=== PATIENT | male | born 1955 | race Caucasian/White ===

== ENCOUNTER 2017-06-23 05:57 | Emergency (ER) | payer OTHER ==
[~2017-06-23] VITALS: Ht 144.8 cm; Wt 78.0 kg
[2017-06-23 06:00] VITALS: Ht 144.8 cm; Wt 78.0 kg
[2017-06-23] MEDS: HYDROCODONE/APAP (5/325) TAB PO STA ×2 (07:29→07:32)
--- NOTE | 2017-06-23 07:37 | RADRPT ---
PROCEDURE: CT Brain without contrast. CLINICAL INDICATION: Headache TECHNIQUE: CT scan of the brain was performed on a multidetector high-resolution CT scan. Axial im aging was obtained of the brain without contrast administration. Coronal and sagittal reformatted i mages were obtained from the axial source images. Standard CT scan of the head without contrast prot ocols were performed. The total exam CTDI equals 45.01 mGy and the total exam DLP equals 720.23 mGy-cm. One or more of the following dose reduction techniques were used: - Automated exposure control. - Adjustment of the mA and/or kV according to patient size. Use of iterative reconstruction technique. COMPARISON: None. FINDINGS: The ventricular system and peripheral CSF spaces are proportionately prominent consistent with mild generalized cerebral volume loss. Negative for intracranial masses hemorrhages or midline shift. Mil d periventricular deep white matter changes that is nonspecific and consistent with chronic microvas cular ischemic disease. There are small low densities involving the lateral right and left internal capsule consistent with remote lacunar infarcts. The bones of the calvarium are intact. Minimal clinical psychiatrist porfirio bilateral maxillary and ethmoid sinus disease. The mastoids are unremarkable. There is atheroscl erotic heart plaque involving the cavernous carotid arteries and distal left vertebral artery. The g ray-white matter junction is unremarkable. There are small low densities involving the right and lef t avilez radiata consistent with remote lacunar infarcts. IMPRESSION: 1. No evidence of intracranial masses hemorrhages or midline shift. 2. Remote lacunar infarcts involving the right and left internal capsule. 3. Mild generalized cerebral volume loss and nonspecific chronic microvascular ischemic disease. RPTAT:AAJJ Physician Binh Date Time Electronically viewed and signed by Physician Binh on 06/23/2017 07:36 BM/
[2017-06-23] MEDS ORDERED: TRAM-40 PO (07:44)
[2017-06-23 07:53] VITALS: BP 128/68; PULSE 81; RESP 18
--- NOTE | 2017-06-23 09:55 | ERD ---
ER Documentation Chief Complaint Date/Time DATE: 06/23/17 TIME: 09:52 Chief Complaint c/o pulsating headache x 5 days. No n/v. HPI Is a 61-year-old male with a history of diabetes type 2 presenting to the emergency department complaining of left parietal pulsating moderate to severe headache for the past 5 days. Patient denies any photophobia, nausea vomiting. He denies any neuro deficits. He denies taking any medications for this ROS All systems reviewed and are negative except as per history of present illness. Medications Home Meds Active Scripts Tramadol Hcl* (Ultram*) 50 Mg Tablet, 50 MG PO Q6H Y for PAIN, #10 TAB Prov:DELIO STONE PA-C 06/23/17 Allergies Allergies: Coded Allergies: No Known Allergy (Unverified , 06/23/17) PMhx/Soc Medical and Surgical Hx: pt denies Medical Hx, pt denies Surgical Hx Hx Alcohol Use: No Hx Substance Use: No Hx Tobacco Use: No Smoking Status: Never smoker Physical Exam Vitals Vital Signs Date Time Temp Pulse Resp B/P Pulse Ox O2 Delivery O2 Flow Rate FiO2 06/23/17 07:53 81 18 128/68 99 Room Air 06/23/17 06:00 98.3 93 18 166/75 99 Physical Exam GENERAL: well-developed/well-nourished, in no apparent distress, non-toxic appearing HENT: NC/AT, bilateral tympanic membrane is normal with good cone of light, nares patent, oropharynx clear without exudates Tender in the temporal region EYES: Conjunctiva normal, PERRLA, EOMI, no nystagmus noted NECK: Supple, no lymphadenopathy PULM: CTA bilaterally, no rales, rhonchi, or wheezing heard CV: Normal S1S2, RRR, good capillary refill GI: Soft, non-distended, normal bowel sounds, non-tender BACK: No midline tenderness, no masses, No CVAT EXT: No clubbing, cyanosis, or edema NEURO: Alert and orientated to person, place, and time. CN II-IIX intact. Gait and coordination were normal. 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 My differential diagnoses include tension, migraine, and cluster headache, overuse medication headache, subarachnoid hemorrhage, meningitis, stroke. Pain relief was given in the ED with some improvement. Neurology exam was normal, he had stable vital signs. Patient was given [place] in the ED, pain stabilized in the ED. CT of the head was done, radiologist stated 1. No evidence of intracranial masses hemorrhages or midline shift. 2. Remote lacunar infarcts involving the right and left internal capsule. 3. Mild generalized cerebral volume loss and nonspecific chronic microvascular ischemic disease. Patient is hemodynamically stable and neurovascularly intact to be discharged home. Prescriptions Tylenol were given. Discussed to follow up with a primary care physician in the next couple days. Return to the ER if condition worsens or not improving as expected. Patient agreed and understood this plan. Departure Diagnosis: Primary Impression: Headache Condition: Stable Patient Instructions: Self-Care for Headaches, Headache, Unspecified Referrals: [facility] Usted se ornelas hecho un examen mdico de control que le indica que no est en digna condicin que requiera tratamiento urgente en el Departamento de Emergencia. Un estudio ms profundo y el tratamiento de duarte condicin pueden esperar sin ningn riesgo hasta que usted sea atendida/o en el consultorio de duarte mdico o digna cl shimon. Es responsabilidad suya arreglar digna josiah para el seguimiento del stacy. MANEJO DE CONDICIONES NO URGENTES EN EL FUTURO 1) Si usted tiene un mdico de atencin primaria: Usted debera llamar a duarte mdico de atencin primaria antes de venir al departamento de emergencia. Despus de las horas de consultorio, duarte doctor o duarte asociado/a est disponible por telfono. El mdico o enfermero de lucinda en el servicio telefnico puede asesorarle por anu medio para atender el problema, o stacy contrario se puede programar digna josiah. 2) Si usted no tiene un mdico de atencin primaria: Llame al mdico o clnica de referencia que aparece abajo anita las horas de consultorio para hacer digna josiah para que le vean. CLINICAS: [place] [id number] [phone] [facility] [phone] [facility] [phone] [place] [phone] [facility]. [place] [id number] [phone] [facility] [phone] [address] Additional Instructions: Visite a duarte mdico maana para un EXAMEN.Regrese a estas instalaciones si no se mejora estela esperbamos o estela le dijimos. [place] toda la medicina oneil y estela se le indic. DELIO STONE PA-C Jun 23, 2017 09:55
== END 2017-06-23 07:53 | disposition home or self-care (01) ==
LOC: FTE 05:57
DX: R51 Headache (principal)
CPT/HCPCS: 70450; Z7502; Z7610

== ENCOUNTER 2017-09-17 03:26 | Observation (INO) | END 2017-09-19 11:20 | disposition home or self-care (01) ==

== ENCOUNTER 2017-09-23 15:40 | Outpatient (CLI) | END 2017-09-23 17:00 | disposition home or self-care (01) ==

== ENCOUNTER 2017-10-12 13:56 | Outpatient (CLI) | END 2017-10-12 17:00 | disposition home or self-care (01) ==